=== PATIENT | female | born 1995 | race Two or more races ===

== ENCOUNTER → 2020-01-22 09:00 | Outpatient (CLI) | payer OTHER | END | disposition home or self-care (01) | LOC: PPH VACUNA 09:00 | DX: Z23 Encounter for immunization (principal) ==

== ENCOUNTER 2020-04-22 12:55 | Outpatient (CLI) | payer OTHER | END 2020-04-22 15:00 | disposition home or self-care (01) | LOC: PPH VACUNA 12:55 | DX: Z23 Encounter for immunization (principal) ==

== ENCOUNTER 2023-01-18 06:01 | Emergency (ER) | payer OTHER ==
[~2023-01-18] VITALS: Ht 165.1 cm; Wt 84.4 kg
[~2023-01-18 06:01] MED LIST: MINOCYCLINE HCL PO; ZITHROMAX500 MG PO
[2023-01-18] MEDS ORDERED: MOUNJARO2.5 MG/0.5 SQ (06:12)
== END 2023-01-18 10:23 | disposition home or self-care (01) ==
LOC: ER 06:01
DX: J06.9 Acute upper respiratory infection, unspecified (principal); Z20.822 Contact with and (suspected) exposure to COVID-19

== ENCOUNTER 2023-08-03 11:09 | Emergency (ER) | payer OTHER ==
[~2023-08-03] VITALS: Ht 165.1 cm; Wt 78.5 kg
[~2023-08-03 11:09] MED LIST changes: +MOUNJARO2.5 MG/0.5 SQ
[2023-08-03 14:07] LABS: HEMATOCRIT 43.2 % (36.0-45.00); HEMOGLOBIN 14.8 g/dL (12.0-15.00); MEAN CELL VOLUME 82.2 fL (80.00-100.00); MEAN CORPUSCULAR HEMOGLOBIN 28.2 pg (27.00-32.0); MEAN CORPUSCULAR HGB CONC 34.3 g/dl (32.0-36.0); PLATELET COUNT 276 K/uL (150-450); RED BLOOD COUNT 5.26 M/uL (4.00-6.00); RED CELL DISTRIBUTION WIDTH 14.6 % (11.5-14.5)
== END 2023-08-03 16:07 | disposition home or self-care (01) ==
LOC: ER 11:09
PROVIDERS: General Practice
DX: B34.9 Viral infection, unspecified (principal); R53.81 Other malaise; Z20.822 Contact with and (suspected) exposure to COVID-19; E11.9 Type 2 diabetes mellitus without complications; Z91.013 Allergy to seafood

== ENCOUNTER 2023-12-01 17:13 | Emergency (ER) | payer OTHER ==
[~2023-12-01] VITALS: Ht 165.1 cm; Wt 88.9 kg
[2023-12-01] MEDS ORDERED: PEPCID AC20 MG PO (17:26)
[2023-12-01] MEDS ORDERED: ACID REDUCER20 M1 PO (17:26)
[2023-12-01] MEDS ORDERED: CARAFATE1 GM PO (17:26)
[2023-12-01] MEDS ORDERED: METOPROLOL SUCCINATE 50 MG TAB.SR.24H PO ONE (18:15)
[2023-12-01 18:44] LABS: HEMATOCRIT 45.1 % (36.0-45.00); HEMOGLOBIN 15.5 g/dL (12.0-15.00); MEAN CELL VOLUME 84.3 fL (80.00-100.00); MEAN CORPUSCULAR HGB CONC 34.4 g/dl (32.0-36.0); PLATELET COUNT 301 K/uL (150-450); RED BLOOD COUNT 5.35 M/uL (4.00-6.00); RED CELL DISTRIBUTION WIDTH 13.6 % (11.5-14.5)
[2023-12-01] MEDS ORDERED: ACETAMINOPHEN 500 MG GEL..CAP PO ONE ×2 (19:15→19:19)
[2023-12-01 19:18] LABS: CALCIUM 9.9 mg/dL (8.5-10.1); CREATININE SERUM 0.75 mg/dL (0.55-1.02); GFR 92.01; POTASSIUM 3.9 mEq/L (3.5-5.1)
== END 2023-12-01 19:35 | disposition home or self-care (01) ==
LOC: ER 17:15
PROVIDERS: Emergency Medicine
DX: I10 Essential (primary) hypertension (principal); E11.9 Type 2 diabetes mellitus without complications; Z91.013 Allergy to seafood